=== PATIENT | male | born 1955 | race African-American/Black ===

== ENCOUNTER 2017-10-07 09:22 | Inpatient (IN) | payer BC ==
[2017-10-07] VITALS (36 sets, daily range): BP systolic 113–172; BP diastolic 23–86
[~2017-10-07] VITALS: Ht 175.3 cm; Wt 75.7 kg
[2017-10-07] MEDS ORDERED: ASPIRIN 81MG TABLET PO ONE (09:30)
[2017-10-07] MEDS ORDERED: ASPIRIN 325MG EC TABLET PO SCH (09:35)
[2017-10-07] MEDS ORDERED: ASPIRIN 325MG EC TABLET PO ONE (09:45)
[2017-10-07] MEDS ORDERED: ASPIRIN 81MG TABLET ONE (09:57)
[2017-10-07] MEDS ORDERED: HEPARIN 5000 UNITS/ML VIAL IV ONE (10:00)
[2017-10-07] MEDS ORDERED: IODIXANOL 320MG/ML 200ML BOTTLE ONE ×2 (10:08→10:46)
[2017-10-07] MEDS ORDERED: IOVERSOL 240MG/ML 100ML BOTTLE IV ONE (10:09)
[2017-10-07] MEDS ORDERED: LIDOCAINE HCL 1% 20ML VIAL (Pyxis) INJ ONE ×2 (10:09→10:52)
[2017-10-07] MEDS ORDERED: FENTANYL CITRATE/PF 50MCG/ML 5ML VIAL ONE (10:12)
[2017-10-07] MEDS ORDERED: MIDAZOLAM HCL 2 MG/2 ML VIAL ONE (10:12)
[2017-10-07 10:23] LABS: BASOPHILS % 0.5 % (0.0-2.0); EOSINOPHILS % 0.9 % (0.0-5.0); HEMATOCRIT. 44.7 % (42.0-52.0); HEMOGLOBIN. 15.2 g/dL (14.0-18.0); LYMPHOCYTES % 33.3 % (20.0-50.0); MEAN CORPUSCULAR VOLUME 82.2 fL (80.0-94.0); MEAN PLATELET VOLUME 8.6 fl (7.4-10.4); MONOCYTES % 5.5 % (2.0-8.0); NEUTROPHILS % 59.8 % (40.0-76.0); PLATELET 255 x1000/uL (130-400); RED BLOOD CELL COUNT 5.43 mill/uL (4.7-6.1); RED CELL DISTRIBUTION WIDTH 15.7 % (11.6-14.6)
[2017-10-07] MEDS ORDERED: CLOPIDOGREL 75MG TABLET ONE (10:30)
[2017-10-07 10:31] LABS: PROTHROMBIN TIME 10.6 sec (9.4-11.6)
[2017-10-07] MEDS ORDERED: ATROPINE SULFATE 0.1MG/ML 10ML DISP.SYRIN ONE (10:32)
[2017-10-07 10:35] LABS: CHLORIDE 106 mEq/L (98-107)
[2017-10-07] MEDS ORDERED: ONDANSETRON HCL 4MG/2ML VIAL ONE ×2 (10:42→12:09)
[2017-10-07] MEDS ORDERED: CLONIDINE 0.1MG TABLET PO PRN (11:00)
[2017-10-07] MEDS: AMLODIPINE 5MG TABLET PO SCH ×2 (11:00→21:00)
[2017-10-07] MEDS ORDERED: KCL 10MEQ/50ML PREMIX 50 ML IV ONE (11:00)
[2017-10-07] MEDS: LOSARTAN POTASSIUM 25 MG TABLET PO SCH ×2 (11:00→21:00)
[2017-10-07] MEDS ORDERED: SODIUM CHL 0.45% + KCL 20MEQ/L 1,000 ML IV STA (11:12)
[2017-10-07] MEDS ORDERED: CLONIDINE 0.2MG TABLET PO PRN (11:15)
[2017-10-07] MEDS ORDERED: TICAGRELOR 90 MG TABLET PO ONE (11:43)
[2017-10-07] MEDS ORDERED: ACETAMINOPHEN 325MG TABLET PO PRN (12:00)
[2017-10-07] MEDS ORDERED: MORPHINE SULFATE 4 MG/ML CPJ (NOT FOR IM USE) IV PRN (12:00)
[2017-10-07] MEDS ORDERED: ATROPINE SULFATE 1MG/10ML SYR IV PRN (12:00)
[2017-10-07] MEDS ORDERED: ONDANSETRON HCL 4MG/2ML VIAL IV PRN (12:00)
[2017-10-07] MEDS ORDERED: PHENYLEPHRINE 100MCG/ML 10ML VIAL (CATH LAB) IV ONE (13:49)
[2017-10-07] MEDS ORDERED: NITROGLYCERIN 50MCG/ML 10ML VIAL (CATH LAB) IV ONE (13:49)
[2017-10-07] MEDS ORDERED: NICARDIPINE 100MCG/ML 10ML VIAL (CATH LAB) IV ONE (13:49)
[2017-10-07] MEDS ORDERED: HEPARIN SODIUM 1,000 UNIT/1ML VIAL IV ONE (13:49)
[2017-10-07] MEDS: TICAGRELOR 90 MG TABLET PO SCH (17:00)
[2017-10-07] MEDS: ATORVASTATIN CALCIUM 40MG TABLET PO SCH (21:35)
[2017-10-08] VITALS (28 sets, daily range): BP systolic 96–127; BP diastolic 30–80
[2017-10-08 06:41] LABS: BASOPHILS % 0.3 % (0.0-2.0); EOSINOPHILS % 0.5 % (0.0-5.0); HEMATOCRIT. 40.3 % (42.0-52.0); HEMOGLOBIN. 13.4 g/dL (14.0-18.0); LYMPHOCYTES % 24.2 % (20.0-50.0); MEAN CORPUSCULAR HEMOGLOBIN 27.4 pg (28.0-32.0); MEAN CORPUSCULAR VOLUME 82.7 fL (80.0-94.0); MEAN PLATELET VOLUME 8.3 fl (7.4-10.4); MONOCYTES % 7.4 % (2.0-8.0); NEUTROPHILS % 67.6 % (40.0-76.0); PLATELET 199 x1000/uL (130-400); RED BLOOD CELL COUNT 4.88 mill/uL (4.7-6.1); RED CELL DISTRIBUTION WIDTH 15.4 % (11.6-14.6)
[2017-10-08 07:01] LABS: CHLORIDE 112 mEq/L (98-107)
[2017-10-08 07:24] LABS: CREATINE KINASE 718 IU/L (39-308)
[2017-10-08] MEDS ORDERED: ASPIRIN 325MG EC TABLET PO SCH (09:00)
[2017-10-08] MEDS: AMLODIPINE 5MG TABLET PO SCH ×2 (09:00→21:00)
[2017-10-08] MEDS: LOSARTAN POTASSIUM 25 MG TABLET PO SCH ×2 (09:00→21:00)
[2017-10-08] MEDS ORDERED: POTASSIUM CHLORIDE 20MEQ TABLET SR PO NR (09:12)
[2017-10-08] MEDS ORDERED: ASPIRIN 81MG TABLET PO SCH (10:00)
[2017-10-08] MEDS: TICAGRELOR 90 MG TABLET PO SCH ×2 (10:07→16:32)
[2017-10-08] MEDS: ASPIRIN 81MG EC TABLET PO SCH (10:07)
[2017-10-08] MEDS ORDERED: ASPI-1159 PO (16:15)
[2017-10-08] MEDS ORDERED: AMLO5TAB4 PO (16:15)
[2017-10-08] MEDS: ATORVASTATIN CALCIUM 40MG TABLET PO SCH (21:58)
[2017-10-09] VITALS (12 sets, daily range): BP systolic 99–147; BP diastolic 62–90
[2017-10-09 07:03] LABS: BASOPHILS % 0.7 % (0.0-2.0); EOSINOPHILS % 1.2 % (0.0-5.0); HEMOGLOBIN. 13.4 g/dL (14.0-18.0); LYMPHOCYTES % 29.8 % (20.0-50.0); MEAN CORPUSCULAR HEMOGLOBIN 27.1 pg (28.0-32.0); MEAN CORPUSCULAR VOLUME 83.1 fL (80.0-94.0); MEAN PLATELET VOLUME 8.2 fl (7.4-10.4); MONOCYTES % 7.5 % (2.0-8.0); NEUTROPHILS % 60.8 % (40.0-76.0); PLATELET 200 x1000/uL (130-400); RED BLOOD CELL COUNT 4.93 mill/uL (4.7-6.1); RED CELL DISTRIBUTION WIDTH 15.8 % (11.6-14.6)
[2017-10-09 07:32] LABS: CHLORIDE 111 mEq/L (98-107)
[2017-10-09 07:54] LABS: HDL CHOLESTEROL 34 mg/dL (40-59); LDL CHOLESTEROL 94 mg/dL (5-100)
[2017-10-09] MEDS: ASPIRIN 81MG EC TABLET PO SCH (08:23)
[2017-10-09] MEDS: AMLODIPINE 5MG TABLET PO SCH (08:24)
[2017-10-09] MEDS: TICAGRELOR 90 MG TABLET PO SCH (08:25)
[2017-10-09] MEDS: LOSARTAN POTASSIUM 25 MG TABLET PO SCH (08:25)
== END 2017-10-09 13:30 | disposition home or self-care (01) | DRG 247 ==
LOC: ER 09:42 → CVICU 10:03 → EDBEDREQ 10:48 → 3WST 10-08 17:37
PROVIDERS: ADMIT Hospitalist; ATTEND Hospitalist
PROC: 4A023N7 Measurement of Cardiac Sampling and Pressure, Left Heart, Percutaneous Approach (ICD-10-PCS; principal; 2017-10-07)
PROC: 027035Z Dilation of Coronary Artery, One Artery with Two Drug-eluting Intraluminal Devices, Percutaneous Approach (ICD-10-PCS; 2017-10-07)
PROC: B2111ZZ Fluoroscopy of Multiple Coronary Arteries using Low Osmolar Contrast (ICD-10-PCS; 2017-10-07)
PROC: B2151ZZ Fluoroscopy of Left Heart using Low Osmolar Contrast (ICD-10-PCS; 2017-10-07)
DX: I21.19 ST elevation (STEMI) myocardial infarction involving other coronary artery of inferior wall (principal); I95.9 Hypotension, unspecified; E87.5 Hyperkalemia; I25.10 Atherosclerotic heart disease of native coronary artery without angina pectoris; E78.00 Pure hypercholesterolemia, unspecified; E87.6 Hypokalemia; E78.5 Hyperlipidemia, unspecified; I10 Essential (primary) hypertension; Z82.49 Family history of ischemic heart disease and other diseases of the circulatory system; Z95.5 Presence of coronary angioplasty implant and graft
CPT/HCPCS: 36415; 71045; 80053; 80061; 82550; 83735; 83880; 84443; 84484; 85025; 85347; 85379; 85610; 85730; 92928; 93005; 93306; 93458; 99285; C1725; C1769; C1887; C1893; J0461; J1644; J2250; J2370; J2405; J3010; J3480; J3490; Q9967; J8499